=== PATIENT | female | born 1955 | race Caucasian/White ===

== ENCOUNTER 2022-04-20 04:05 | Day surgery (SDC) | payer OTHER, MEDICARE ==
[2022-04-18 10:13] VITALS: BMI 39.6
[2022-04-20] MEDS ORDERED: MIDAZOLAM HCL 2 MG/2 ML SINGLE DOSE VIAL ONE (10:37)
[2022-04-20] MEDS ORDERED: ONDANSETRON 4 MG/2 ML VIAL IVPUSH PRN (11:49)
[2022-04-20] MEDS ORDERED: oxyCODONE HCL 5 MG TABLET PO PRN (11:49)
[2022-04-20] MEDS ORDERED: PROMETHAZINE HCL 25 MG/1 ML VIAL IVPB PRN (11:49)
[2022-04-20] MEDS ORDERED: IBUPROFEN 400 MG TABLET (FP) PO PRN (12:03)
[2022-04-20] MEDS ORDERED: ACETAMINOPHEN 325 MG TABLET (FP) PO PRN (12:03)
[2022-04-20 13:43] VITALS: TEMP 97.3
[2022-04-20 16:16] VITALS: BP 107/57; PULSE 63; RESP 20
== END 2022-04-20 16:07 | disposition home or self-care (01) ==
LOC: JASU-SURG 04:05
PROVIDERS: ATTEND Obstetrics & Gynecology
PROC: 0UBC8ZZ Excision of Cervix, Via Natural or Artificial Opening Endoscopic (ICD-10-PCS; principal; 2022-04-20 10:00)
DX: N95.0 Postmenopausal bleeding (principal); N84.1 Polyp of cervix uteri
CPT/HCPCS: 88305-TC; 88341-TC; 88342-TC; 94760

== ENCOUNTER → 2022-05-11 | Day surgery (SDC) | payer OTHER, MEDICARE | END | disposition home or self-care (01) | LOC: JRADUS-SUR 07:48 | PROVIDERS: ATTEND Obstetrics & Gynecology | PROC: 0H9T3ZX Drainage of Right Breast, Percutaneous Approach, Diagnostic (ICD-10-PCS; principal; 2022-05-11) | DX: N60.31 Fibrosclerosis of right breast (principal) | CPT/HCPCS: 19083; 77065-TC; 87899; 88305-TC; 88342-TC; A4648 ==

== ENCOUNTER 2023-03-08 03:59 | Day surgery (SDC) | payer OTHER, MEDICARE ==
[2023-03-03 09:16] VITALS: BMI 38.3
[2023-03-08] MEDS ORDERED: MIDAZOLAM HCL 2 MG/2 ML SINGLE DOSE VIAL ONE (12:26)
[2023-03-08] MEDS ORDERED: PROPOFOL 40 ML ONE (12:28)
[2023-03-08] MEDS ORDERED: SUCCINYLCHOLINE CHLORIDE 200 MG/10 ML SYRINGE ONE (12:29)
[2023-03-08] MEDS ORDERED: oxyCODONE HCL 5 MG TABLET PO PRN (13:48)
[2023-03-08] MEDS ORDERED: LACTATED RINGERS SOLUTION 1,000 ML IV SCH (14:00)
[2023-03-08 15:05] VITALS: RESP 20
[2023-03-08 16:44] VITALS: BP 128/52; PULSE 59; TEMP 97.1
== END 2023-03-08 16:44 | disposition home or self-care (01) ==
LOC: JASU-SURG 03:59
PROVIDERS: ATTEND Obstetrics & Gynecology
PROC: 0UB98ZZ Excision of Uterus, Via Natural or Artificial Opening Endoscopic (ICD-10-PCS; principal; 2023-03-08 12:30)
DX: N95.0 Postmenopausal bleeding (principal); N84.0 Polyp of corpus uteri
CPT/HCPCS: 88305-TC; 94760